=== PATIENT | male | born 1960 | race Caucasian/White ===

== ENCOUNTER 2022-06-11 07:28 | Day surgery (SDC) | payer BC ==
[2022-06-05 09:12] VITALS: BMI 33.9
[2022-06-11] MEDS ORDERED: PROPOFOL 120 ML ONE (07:45)
[2022-06-11] MEDS ORDERED: LIDOCAINE HCL/PF 2% SDV 5ML VIAL ONE ×2 (07:45→08:24)
[2022-06-11 07:49] VITALS: TEMP 98
[2022-06-11 12:44] VITALS: BP 125/61; PULSE 60; RESP 18
== END 2022-06-11 09:25 | disposition home or self-care (01) ==
LOC: FASU-ENDO 07:28
PROVIDERS: ATTEND Internal Medicine Gastroenterology
PROC: 0DJD8ZZ Inspection of Lower Intestinal Tract, Via Natural or Artificial Opening Endoscopic (ICD-10-PCS; principal; 2022-06-11 08:28)
DX: Z12.11 Encounter for screening for malignant neoplasm of colon (principal)